=== PATIENT | male | born 1955 | race Caucasian/White ===

== ENCOUNTER 2020-07-26 15:10 | Outpatient (RCR) | payer OTHER, SELFPAY ==
[2016-03-05 10:10] VITALS: BMI 20.8
[2020-07-26] MEDS: COVID-19 VACC, MRNA(PFIZER)/PF 30 MCG/0.3 ML SYRINGE IM (13:24)
[2020-08-16] MEDS: COVID-19 VACC, MRNA(PFIZER)/PF 30 MCG/0.3 ML SYRINGE IM (13:04)
== END 2020-10-22 23:59 ==
LOC: IMMUN 15:10
PROVIDERS: PCP Family Medicine Geriatric Medicine; Referring Provider Family Medicine; Visit Provider Family Medicine
DX: Z23 Encounter for immunization (principal)
CPT/HCPCS: 0001A; 0002A; 91300

== ENCOUNTER → 2022-03-13 | Outpatient (CLI) | payer OTHER, SELFPAY ==
--- NOTE | 2022-03-13 16:15 | RAD_ITS ---
STUDY: X-RAY - CERVICAL SPINE REASON FOR EXAM: Male, 66 years old. NECK PAIN TECHNIQUE: 5 view(s) of the cervical spine were obtained. COMPARISON: None FINDINGS: Normal anterior atlantoaxial articulation. Normal odontoid process. Reversal of cervical lordosis due to degenerative disc disease. Severe anterior osteophyte formation C5-C7 moderate osteophyte formation C4-5 and C7-T1. Severe loss of disc space height C5-C7. There is moderate bilateral neural foraminal encroachment C5-C7. The soft tissue structures are unremarkable. RAD/Cerv Spine 4 or 5 Views IMPRESSION: Degenerative changes as above. Electronically Signed: Phong Simms MD, KLARISSA at 16:27 EDT ,
[2022-03-13 16:17] LABS: Bacteria 0 SEEN /hpf (None Seen); Mucous, Urine 0 SEEN /hpf (<or=2+); Squamous Epithelial Cells - UA 0 SEEN /hpf (0-5); White Blood Cells 0 SEEN /hpf (0-5)
[2022-03-13 17:31] LABS: Absolute Lymphocyte Count 1.88 X10^3/uL (0.83-4.51); Absolute Neutrophil Count 4.2 X10^3/uL (2.0-7.7); Basophil# 0.06 X10^3/uL; Basophil% 0.9 % (0-1); Eosinophil# 0.09 X10^3/uL; Eosinophils% 1.3 % (0-5); Hematocrit 51.9 % (40-54); Hemoglobin 17.3 g/dL (13.0-16.5); Lymphocyte # 1.88 X10^3/ul (0.83-4.51); Lymphocyte % 26.8 % (19-41); Mean Corp Hgb Conc 33.3 g/dL (32-36); Mean Corpuscular Hgb 32.4 pg (27.0-32.0); Mean Corpuscular Volume 97.2 fL (80-94); Mean Platelet Vol. 10.5 fl (6.2-12.0); Monocyte# 0.72 X10^3/uL; Monocyte% 10.3 % (0-10); NRBC Flagged by Analyzer 0 % (0-5); Neutrophil # 4.23 X10^3/uL (2.7-7.7); Neutrophil % 60.3 % (47-70); POSITIVE COUNT YES; Platelet Count 113 K/mm3 (150-450); RBC Distribution Width CV 13.3 % (11.6-14.6); RBC Distribution Width SD 48.2 fl (35.1-43.9); Red Blood Count 5.34 M/mm3 (4.6-6.2)
[2022-03-13 17:34] LABS: Differential Indicated SCAN CRITERIA MET
[2022-03-13 18:10] LABS: AST(SGOT) 39 U/L (15-37); Alanine Aminotransfer ALT/SGPT 45 U/L (16-61); Alkaline Phosphatase 87 U/L (45-117); Anion Gap 7 (5-15); BUN 13 mg/dL (7-18); BUN/Creat Ratio 17.5 RATIO (10-20); Calcium,Total 9.1 mg/dL (8.5-10.1); Chloride 98 mmol/L (98-107); Cholesterol 140 mg/dL (200); Creatinine, Serum 0.74 mg/dL (0.70-1.30); EST Glomerular Filtration Rate 112 mL/min (>60); Est Glom Filt Rate - Afr Amer 136 mL/min (>60); Glucose 73 mg/dL (74-106); High Density Lipoprotein 84 mg/dL; Magnesium 1.5 mg/dL (1.6-2.6); Potassium 3.4 mmol/L (3.5-5.1); Sodium Level 132 mmol/L (136-145); Thyroid Stim Hormone (TSH) 1.67 uIU/mL (0.358-3.74); Triglycerides 40 mg/dL; Very Low Density Lipoprotein 8 mg/dL (5-40)
[2022-03-13 18:11] LABS: Platelet Estimate SLT DEC (ADEQ); Red Cell Morphology N CYTIC NORMAL (NORM C&C)
[2022-03-13 18:18] LABS: Color, Urine Yellow (Yellow); Glucose, Dipstick Normal (Normal); Ketone-Dipstick 15 mg/dl (Negative); Leukocyte Esterase-Dipstick Negative /ul (Negative); Nitrite-Dipstick Negative (Negative); Occult Blood-Urine 25 /ul (Negative); Protein-Dipstick Negative (Negative); Specific Gravity, Urine 1.015 (1.002-1.030); Urine Bilirubin Dipstick Negative (Negative); Urine Clarity Clear (Clear); Urine Urobilinogen Normal (Normal); Urine pH 6.5 (5.0 - 8.0)
[2022-03-13 19:37] LABS: Red Blood Cells-Urine 0-5 SEEN /hpf (0-5)
[2022-03-16 12:34] LABS: Hepatitis B Surface Antibody Non-Reactive; Hepatitis B Surface Antigen Non-Reactive (Nonreactive); Hepatitis C Antibody Non-Reactive (Nonreactive)
[2022-03-16 23:21] LABS: Ferritin 61 ng/mL (26-388); Iron 84 ug/dL (65-175); Iron Binding Capacity,Total 460 ug/dL (250-450)
== END | disposition home or self-care (01) ==
LOC: MTLAB 16:13
PROVIDERS: PCP Family Medicine; Referring Provider Family Medicine; Visit Provider Family Medicine
DX: M54.2 Cervicalgia (principal); F17.210 Nicotine dependence, cigarettes, uncomplicated; R03.0 Elevated blood-pressure reading, without diagnosis of hypertension; D75.1 Secondary polycythemia; Z86.73 Personal history of transient ischemic attack (TIA), and cerebral infarction without residual deficits
CPT/HCPCS: 36415; 72050; 80053; 80061; 81001; 82728; 83540; 83550; 83735; 84443; 84466; 85025; 86706; 86803; 87340

== ENCOUNTER → 2022-03-17 | Outpatient (CLI) | payer OTHER, SELFPAY ==
[2022-03-17 18:03] LABS: Ferritin 77 ng/mL (26-388); Iron 71 ug/dL (65-175); Iron Binding Capacity,Total 340 ug/dL (250-450); PERCENT IRON SATURATION 20.9 % (15.0-55.0)
[2022-03-19 15:12] LABS: Transferrin 268 mg/dL (177-329)
== END | disposition home or self-care (01) ==
LOC: MTLAB 15:06
PROVIDERS: PCP Family Medicine; Referring Provider Family Medicine; Visit Provider Family Medicine
DX: R79.89 Other specified abnormal findings of blood chemistry (principal); D75.1 Secondary polycythemia
CPT/HCPCS: 36415; 82728; 83540; 83550; 84466

== ENCOUNTER → 2022-03-24 | Outpatient (CLI) | payer OTHER, SELFPAY ==
--- NOTE | 2022-03-24 06:48 | CT_ITS ---
STUDY: LOW DOSE CT LUNG CANCER SCREENING REASON FOR EXAM: Male, 67 years old. Current smoker. Patient smokes 1 pack per day for 50 years. RADIATION DOSAGE (If Supplied By Facility): CTDIvol = ( 3.02 ) mGy, DLP = ( 111.36 ) mGycm TECHNIQUE: No contrast was administered. Low dose technique was utilized (average mAS-38 and kVp 120). 1.25 mm axial source images with a slice interval of 1.25-mm were reconstructed in lung windows. 2.5 mm axial source images with a slice interval of 2.5-mm were reconstructed in lung windows. 5.0 mm axial source images with a slice interval of 5.0-mm were reconstructed in soft tissue windows. COMPARISON: Comparison is made with prior study dated 02/22/2014. NODULES: No suspicious nodules are seen. Emphysema: Scarring at both lung apices more prominent at the right lung apex. Hyperinflation. Mild degree of emphysematous changes more prominent in the upper lobes. Minimal increased markings in the posterior medial segment of the right lower lobe suggestive of linear scarring. Endobronchial lesion: None Aorta: Atherosclerotic plaque formation of the aortic arch. CORONARY ARTERIES: Coronary artery calcification is seen. Heart: Unremarkable Pulmonary artery: Unremarkable Mediastinal nodes: Small benign-appearing mediastinal lymph nodes. Other chest and abdominal findings: CT/Low Dose CT Lung Screening IMPRESSION: Lung-RADS category 2 - Continue annual screening with LDCT in 12 months. IMPORTANT NOTES FOR USE: ACR Lung-RADS Version 1.1 Assessment Categories Release Date: 2018 Category: Coded 0-4 bases on nodule(s) with highest degree of suspicion. Negative screen is defined as categories 1 and 2; a positive screen is defined as categories 3 and 4. Category 3 and 4A nodules that are unchanged on interval CT should be coded as category 2, and individuals returned to screening in 12 months. Category 4X: Category 3 or 4 nodules with additional imaging findings that increase the suspicion of lung cancer, such as spiculation, GGN that doubles in size in 1 year, enlarged lymph notes, etc. Category Modifiers: S (significant finding unrelated to lung cancer) Electronically Signed: Hamzah Claudio MD at 9:02 EST ,
== END | disposition home or self-care (01) ==
LOC: CT 06:47
PROVIDERS: PCP Family Medicine; Visit Provider Family Medicine
DX: F17.210 Nicotine dependence, cigarettes, uncomplicated (principal)
CPT/HCPCS: 71271

== ENCOUNTER → 2022-06-26 | Outpatient (CLI) | payer BC, SELFPAY ==
[2022-06-26 14:19] LABS: Bacteria 0 SEEN /hpf (None Seen); Mucous, Urine 0 SEEN /hpf (<or=2+); Red Blood Cells-Urine 0 SEEN /hpf (0-5); Squamous Epithelial Cells - UA 0 SEEN /hpf (0-5); White Blood Cells 0 SEEN /hpf (0-5)
[2022-06-26 17:47] LABS: Absolute Lymphocyte Count 1.65 X10^3/uL (0.83-4.51); Absolute Neutrophil Count 4.2 X10^3/uL (2.0-7.7); Basophil# 0.05 X10^3/uL; Basophil% 0.7 % (0-1); Eosinophils% 1.5 % (0-5); Hematocrit 46.3 % (40-54); Hemoglobin 15.5 g/dL (13.0-16.5); Lymphocyte # 1.65 X10^3/ul (0.83-4.51); Lymphocyte % 24.6 % (19-41); Mean Corp Hgb Conc 33.5 g/dL (32-36); Mean Corpuscular Hgb 31.8 pg (27.0-32.0); Mean Corpuscular Volume 95.1 fL (80-94); Mean Platelet Vol. 9.9 fl (6.2-12.0); Monocyte# 0.69 X10^3/uL; Monocyte% 10.3 % (0-10); NRBC Flagged by Analyzer 0 % (0-5); Neutrophil # 4.21 X10^3/uL (2.7-7.7); Neutrophil % 62.6 % (47-70); Platelet Count 145 K/mm3 (150-450); RBC Distribution Width CV 13.2 % (11.6-14.6); RBC Distribution Width SD 46.4 fl (35.1-43.9); Red Blood Count 4.87 M/mm3 (4.6-6.2); White Blood Count 6.7 K/mm3 (4.4-11.0)
[2022-06-26 17:55] LABS: Color, Urine Yellow (Yellow); Glucose, Dipstick Normal (Normal); Ketone-Dipstick Negative (Negative); Leukocyte Esterase-Dipstick Negative /ul (Negative); Nitrite-Dipstick Negative (Negative); Occult Blood-Urine 25 /ul (Negative); Protein-Dipstick Negative (Negative); Specific Gravity, Urine 1.015 (1.002-1.030); Urine Bilirubin Dipstick Negative (Negative); Urine Clarity Clear (Clear); Urine Urobilinogen 1 mg/dl (Normal); Urine pH 6.5 (5.0 - 8.0)
[2022-06-26 18:11] LABS: AST(SGOT) 31 U/L (15-37); Alanine Aminotransfer ALT/SGPT 37 U/L (16-61); Albumin, Serum 3.7 g/dL (3.2-5.0); Alkaline Phosphatase 85 U/L (45-117); Anion Gap 8 (5-15); BUN 13 mg/dL (7-18); BUN/Creat Ratio 18.1 RATIO (10-20); Chloride 102 mmol/L (98-107); Creatinine, Serum 0.72 mg/dL (0.70-1.30); EST Glomerular Filtration Rate 117 mL/min (>60); Est Glom Filt Rate - Afr Amer 141 mL/min (>60); Globulin 3.7 g/dL (2.2-4.2); Glucose 96 mg/dL (74-106); Magnesium 1.7 mg/dL (1.6-2.6); Potassium 3.5 mmol/L (3.5-5.1); Protein, Total 7.4 g/dL (6.4-8.2); Sodium Level 134 mmol/L (136-145)
== END | disposition home or self-care (01) ==
LOC: MFPLAB 14:16
PROVIDERS: PCP Family Medicine; Referring Provider Family Medicine; Visit Provider Family Medicine
DX: R79.89 Other specified abnormal findings of blood chemistry (principal); F17.210 Nicotine dependence, cigarettes, uncomplicated; E83.42 Hypomagnesemia
CPT/HCPCS: 36415; 80053; 81001; 83735; 85025

== ENCOUNTER → 2022-11-25 | Outpatient (CLI) | payer BC, SELFPAY ==
[2022-11-25 15:39] LABS: Bacteria 0 SEEN /hpf (None Seen); Mucous, Urine 0 SEEN /hpf (<or=2+); White Blood Cells 0 SEEN /hpf (0-5)
[2022-11-25 17:53] LABS: Color, Urine Yellow (Yellow); Glucose, Dipstick Normal (Normal); Ketone-Dipstick 15 mg/dl (Negative); Leukocyte Esterase-Dipstick 25 /ul (Negative); Nitrite-Dipstick Negative (Negative); Occult Blood-Urine 50 /ul (Negative); Protein-Dipstick 30 mg/dl (Negative); Specific Gravity, Urine 1.015 (1.002-1.030); Urine Bilirubin Dipstick Negative (Negative); Urine Clarity Clear (Clear); Urine Urobilinogen 4 mg/dl (Normal); Urine pH 6.5 (5.0 - 8.0)
[2022-11-25 17:56] LABS: Absolute Lymphocyte Count 1.85 X10^3/uL (0.83-4.51); Absolute Neutrophil Count 3.9 X10^3/uL (2.0-7.7); Basophil# 0.04 X10^3/uL; Basophil% 0.6 % (0-1); Eosinophil# 0.05 X10^3/uL; Eosinophils% 0.8 % (0-5); Hematocrit 47.3 % (40-54); Hemoglobin 16.3 g/dL (13.0-16.5); Lymphocyte # 1.85 X10^3/ul (0.83-4.51); Lymphocyte % 27.9 % (19-41); Mean Corp Hgb Conc 34.5 g/dL (32-36); Mean Corpuscular Hgb 32.5 pg (27.0-32.0); Mean Corpuscular Volume 94.2 fL (80-94); Monocyte# 0.81 X10^3/uL; Monocyte% 12.2 % (0-10); NRBC Flagged by Analyzer 0 % (0-5); Neutrophil # 3.86 X10^3/uL (2.7-7.7); Neutrophil % 58.2 % (47-70); Platelet Count 112 K/mm3 (150-450); RBC Distribution Width CV 13.5 % (11.6-14.6); RBC Distribution Width SD 46.9 fl (35.1-43.9); Red Blood Count 5.02 M/mm3 (4.6-6.2); White Blood Count 6.6 K/mm3 (4.4-11.0)
[2022-11-25 18:04] LABS: Red Blood Cells-Urine 0-5 SEEN /hpf (0-5); Squamous Epithelial Cells - UA 0-5 SEEN /hpf (0-5)
[2022-11-25 18:10] LABS: AST(SGOT) 95 U/L (15-37); Alanine Aminotransfer ALT/SGPT 99 U/L (16-61); Albumin, Serum 4.1 g/dL (3.2-5.0); Alkaline Phosphatase 75 U/L (45-117); Anion Gap 10 (5-15); BUN 8 mg/dL (7-18); BUN/Creat Ratio 11.3 RATIO (10-20); Calcium,Total 9.2 mg/dL (8.5-10.1); Chloride 97 mmol/L (98-107); Cholesterol 153 mg/dL (200); Creatinine, Serum 0.71 mg/dL (0.70-1.30); EST Glomerular Filtration Rate 118 mL/min (>60); Est Glom Filt Rate - Afr Amer 143 mL/min (>60); Globulin 4.1 g/dL (2.2-4.2); Glucose 80 mg/dL (74-106); High Density Lipoprotein 109 mg/dL; Potassium 3.5 mmol/L (3.5-5.1); Protein, Total 8.2 g/dL (6.4-8.2); Sodium Level 129 mmol/L (136-145); Triglycerides 44 mg/dL; Very Low Density Lipoprotein 9 mg/dL (5-40)
[2022-11-26 16:44] LABS: Hepatitis C Antibody Non-Reactive (Nonreactive)
[2022-11-30 13:07] LABS: Hepatitis Be Ab Negative (Negative); Hepatitis Be Ag Negative (Negative)
== END | disposition home or self-care (01) ==
LOC: MFPLAB 15:37
PROVIDERS: PCP Family Medicine; Visit Provider Family Medicine
DX: R79.89 Other specified abnormal findings of blood chemistry (principal); J44.9 Chronic obstructive pulmonary disease, unspecified; Z86.73 Personal history of transient ischemic attack (TIA), and cerebral infarction without residual deficits
CPT/HCPCS: 36415; 80053; 80061; 81001; 85025; 86707; 86803; 87350

== ENCOUNTER → 2022-12-11 | Outpatient (CLI) | payer BC, SELFPAY ==
[2022-12-11 17:44] LABS: ALB/GLOB Ratio 1.1 RATIO (0.9-2.4); AST(SGOT) 95 U/L (15-37); Alanine Aminotransfer ALT/SGPT 94 U/L (16-61); Albumin, Serum 4.4 g/dL (3.2-5.0); Alkaline Phosphatase 83 U/L (45-117); Anion Gap 8 (5-15); BUN 7 mg/dL (7-18); BUN/Creat Ratio 9.6 RATIO (10-20); Calcium,Total 9.6 mg/dL (8.5-10.1); Chloride 98 mmol/L (98-107); Creatinine, Serum 0.73 mg/dL (0.70-1.30); EST Glomerular Filtration Rate 115 mL/min (>60); Est Glom Filt Rate - Afr Amer 139 mL/min (>60); Glucose 87 mg/dL (74-106); Protein, Total 8.4 g/dL (6.4-8.2); Sodium Level 131 mmol/L (136-145)
[2022-12-11 18:27] LABS: Hepatitis C Antibody Non-Reactive (Nonreactive)
[2022-12-14 16:09] LABS: Hepatitis Be Ab Negative (Negative); Hepatitis Be Ag Negative (Negative)
== END | disposition home or self-care (01) ==
LOC: MFPLAB 15:29
PROVIDERS: PCP Family Medicine; Visit Provider Family Medicine
DX: R79.89 Other specified abnormal findings of blood chemistry (principal)
CPT/HCPCS: 36415; 80053; 86707; 86803; 87350

== ENCOUNTER 2025-03-16 15:50 | Emergency (ER) | payer MEDICARE, SELFPAY ==
[2025-03-16] VITALS (35 sets, daily range): BP systolic 79–147; BP diastolic 55–133; PULSE 83–120; RESP 12–23; TEMP 36.3–37; O2SAT 93–100; BMI 17.6
--- NOTE | 2025-03-16 16:14 | EKG12_ITS ---
Test Reason : SOB
[2025-03-16] MEDS: 0.9% Normal Saline (500mL Bag) 500 ML 999 ML IV (16:21)
--- NOTE | 2025-03-16 16:22 | ED.VIS.DYS ---
HPI History of Present Illness Chief Complaint: Shortness of Breath Narrative Narrative: Chief complaint and HPI: 70-year-old gentleman with past medical history of COPD, COPD status post PCI, tobacco abuse presents from Dr. Jay's office for shortness of breath. Patient states he has not followed with a primary care physician in 3 years. States he is not on any medication. Was supposed to be on Trelegy for his COPD. Patient states he has had progressive shortness of breath for 3 years. He has had increased fullness in which he has lost 40 pounds in 3 years. He endorses generalized weakness in which it is difficult for him to perform daily tasks of living including bathing. Patient decided that he needs to see a physician in which he went to Dr. Jay's office today. He was sent to our emergency department due to inability to obtain a pulse ox and concern for failure to thrive. Patient denies any fever, chest pain, abdominal pain, nausea, vomiting, dysuria, URI type symptoms. He states that his shortness of breath is worse with exertion. Review of systems: See HPI Medications: As listed on the chart Allergies: As listed on the chart PFSH: Per chart Vital signs: As listed on the chart. Reviewed. Physical exam: Gen: A&O x3, unkept, disheveled Head: Normocephalic, atraumatic Eyes: No sclera icterus, conjunctiva clear ENT: Dry mucous membranes Neck: Trachea midline, No JVD CV: RRR, no murmurs, no peripheral edema Resp: Lungs with expiratory wheezing diffusely GI: Cachectic, abd soft, non-distended, non-tender, no r/r/g : Normal external genitalia without rash Musc: Moves all extremities, generalized weakness, no deformity Skin: Warm, dry Neuro: Alert, oriented, grossly intact, sensation intact Psych: Cooperative, appropriate mood and affect [facility] Medical History (Updated 03/16/25 @ 21:[address] Maddi Hoffmann MD) Alcohol abuse Severe protein-calorie malnutrition Tobacco use COPD (chronic obstructive pulmonary disease) HLD (hyperlipidemia) HTN (hypertension) CAD (coronary artery disease) Anemia Home Medications ?Medication ?Instructions ?Recorded ?Last Taken ?Type No Known/Unobtainable [No Known 03/05/16 Unknown History Home Medications] Allergy/AdvReac Type Severity Reaction Status Date / Time No Known Allergies Allergy Verified 03/16/25 15:53 Family History (Updated 03/16/25 @ 21:[address] Maddi Hoffmann MD) Mother CVA (cerebral vascular accident) Hypertension Father Rheumatoid arthritis Surgical History (Updated 03/16/25 @ 21:[address] Maddi Hoffmann MD) No history of previous surgery Social History (Updated 03/16/25 @ 21:[address] Maddi Hoffmann MD) household members: significant other Smoking Status: Current every day smoker tobacco type: cigarettes Smoking packs per day: 0.75 Smoking cigarettes per day: 15.0 alcohol intake: current alcohol intake frequency: 3 or more drinks per day Alcohol type: beer details: 5-6 beers daily, less than prior. substance use type: does not use EXAM Physical Exam Const Vital Signs: 03/16/25 15:51 03/16/25 15:53 03/16/25 16:18 Temperature 97.3 F L 98 F Temperature Source Oral Oral Pulse Rate 99 100 Respiratory Rate 16 18 Respiratory Effort Blood Pressure 147/133 H 79/63 L 117/78 Blood Pressure Mean 137 68 91 Pulse Ox 99 98 96 Oxygen Delivery Method Room Air Room Air 03/16/25 16:23 03/16/25 16:36 03/16/25 16:53 Temperature 98 F Temperature Source Oral Pulse Rate 115 H 100 Respiratory Rate 16 18 Respiratory Effort Short of Breath Blood Pressure 117/78 Blood Pressure Mean 91 Pulse Ox 100 Oxygen Delivery Method Room Air 03/16/25 17:00 03/16/25 17:00 03/16/25 17:23 Temperature 98 F 98 F Temperature Source Oral Oral Pulse Rate 100 100 Respiratory Rate 20 H 18 Respiratory Effort Blood Pressure 117/78 117/78 Blood Pressure Mean 91 91 Pulse Ox 98 100 99 Oxygen Delivery Method Room Air Room Air Room Air 03/16/25 18:14 03/16/25 18:52 03/16/25 18:53 Temperature 98.6 F 98 F Temperature Source Oral Oral Pulse Rate 115 H 120 H 120 H Respiratory Rate 18 20 H 20 H Respiratory Effort Blood Pressure 96/55 L 89/76 L 89/76 L Blood Pressure Mean 68 80 80 Pulse Ox 96 98 98 Oxygen Delivery Method Room Air Room Air Room Air 03/16/25 19:00 03/16/25 19:24 03/16/25 19:25 Temperature Temperature Source Pulse Rate 103 H Respiratory Rate 18 Respiratory Effort Blood Pressure 86/61 L 92/69 Blood Pressure Mean 69 76 Pulse Ox Oxygen Delivery Method 03/16/25 19:45 03/16/25 19:59 03/16/25 20:00 Temperature Temperature Source Pulse Rate 91 100 Respiratory Rate 18 15 Respiratory Effort Blood Pressure 103/70 103/65 103/68 Blood Pressure Mean 79 77 80 Pulse Ox 100 Oxygen Delivery Method 03/16/25 20:15 03/16/25 20:30 03/16/25 20:30 Temperature Temperature Source Pulse Rate 96 89 Respiratory Rate 16 15 Respiratory Effort Blood Pressure 101/68 103/71 103/71 Blood Pressure Mean 80 82 82 Pulse Ox Oxygen Delivery Method 03/16/25 20:30 03/16/25 20:45 03/16/25 21:00 Temperature Temperature Source Pulse Rate 91 83 Respiratory Rate 14 18 Respiratory Effort Blood Pressure 103/71 Blood Pressure Mean 82 Pulse Ox 100 Oxygen Delivery Method 03/16/25 21:10 03/16/25 21:15 03/16/25 21:30 Temperature 98.0 F Temperature Source Pulse Rate 95 106 H 90 Respiratory Rate 18 18 16 Respiratory Effort Blood Pressure 103/68 Blood Pressure Mean 79 Pulse Ox 97 93 96 Oxygen Delivery Method 03/16/25 21:45 03/16/25 22:00 Temperature Temperature Source Pulse Rate 85 90 Respiratory Rate 16 20 H Respiratory Effort Blood Pressure 121/76 H Blood Pressure Mean 91 Pulse Ox Oxygen Delivery Method MDM MDM MDM Narrative Medical decision making narrative: 70-year-old gentleman with past medical history of COPD, COPD status post PCI, tobacco abuse presents from Dr. Jay's office for shortness of breath. Patient states he has not followed with a primary care physician in 3 years. States he is not on any medication. Was supposed to be on Trelegy for his COPD. Patient states he has had progressive shortness of breath for 3 years. He has had increased fullness in which he has lost 40 pounds in 3 years. He endorses generalized weakness in which it is difficult for him to perform daily tasks of living including bathing. Patient decided that he needs to see a physician in which he went to Dr. Jay's office today. He was sent to our emergency department due to inability to obtain a pulse ox and concern for failure to thrive. On presentation, we had difficulty obtaining vitals given cold fingers and appropriate blood pressure cuff size due to cachexia. However once able to obtain patient's vital signs are stable without hypoxia. Differential diagnosis includes but is not limited to COPD, failure to thrive, dehydration, electrolyte abnormality, ACS, viral illness, PE, cancer. 500 cc NS bolus ordered with Lili. Laboratory workup ordered including CTA chest. CBC without leukocytosis. Patient has anemia with hemoglobin of 12.4. Platelets unremarkable. BMP with mild hypokalemia at 3.0 without ANNALISA. P.o. potassium ordered. Magnesium mildly low at 1.4. P.o. magnesium ordered. COVID, flu, RSV negative. Troponin 26 and 27. Patient not having chest pain. BNP elevated at 1389. Patient not overtly fluid overloaded. Patient's blood pressure started to decrease here in the emergency department. I do think the decrease in blood pressure is secondary to dehydration. 1 L NS bolus ordered. Blood pressure improved with fluids. CT chest shows multiple scattered pulmonary nodules possible malignant/metastatic. Largest nodule measuring up to 19 mm in the right upper lobe. Several enlarged mediastinal and bilateral hilar nodes, probably metastatic. Partially imaged ill-defined heterogeneous possibly infiltrative mass in the left lower neck laryngeal region, which may be a primary carcinoma. Recommend dedicated neck CT. Potential sampling and/or PET CT suggested. No pneumonia or pulmonary edema. No pneumothorax or PE. Will order CT neck to better assess possible infiltrative mass. Patient was updated of all the results and the plan. I do recommend admission for continued hydration as well as skilled rehab placement given patient is failure to thrive at home and having difficulty performing daily tasks of living. He is in agreement to this. I spoke with the hospitalist, Dr. Hoffmann. She did, evaluate the patient. Will hold off on official admission until CT neck results. 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 There is a large tumor volume and there is narrowing of the airway at the level of the glottis and supraglottis. I spoke with the hospitalist service, patient will need be transferred. Patient updated of all results and confirmed understanding of the plan. Will reach out to [facility]. I spoke to [facility] Transfer line. Patient was accepted by Dr. Vogel. They are waiting bed placement at this time. Dr. Vogel did not speak with me personally. Patient will be monitored in our emergency department until transfer is able to be obtained. EKG: Interpreted by me/EM physician: Normal sinus rhythm with PACs. Nonspecific ST changes. Patient did have a tremor with multiple artifacts. Heart rate 91 Impression: 1. 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 Failure to thrive 3. Dehydration 4. Mild hypokalemia 5. Mild hypomagnesia Lab Data Labs: Laboratory Results - last 24 hr 03/16/25 03/16/25 16:33 18:31 WBC 8.0 RBC 4.06 L Hgb 12.4 L Hct 35.9 L MCV 88.4 MCH 30.5 MCHC 34.5 RDW Std Deviation 44.6 H RDW Coeff of Alfonso 13.8 Plt Count 153 MPV 10.5 Immature Gran % (Auto) 0.600 Neut % (Auto) 78.6 H Lymph % (Auto) 12.7 L Mason % (Auto) 7.3 Eos % (Auto) 0.5 Baso % (Auto) 0.3 Absolute Neuts (auto) 6.3 Absolute Lymphs (auto) 1.01 Nucleated RBC % 0 Sodium 133 Potassium 3.0 L Chloride 95 L Carbon Dioxide 23.4 Anion Gap 14 BUN 7 Creatinine 0.59 L Estim Creat Clear Calc 67.50 Est GFR (MDRD) Non-Af 106 BUN/Creatinine Ratio 11.8 Glucose 121 H Calcium 8.6 Magnesium 1.4 L Troponin T High Sens 26 H Troponin T Hi Sens 2 Hr 27 H NT pro BNP II 1389 H Radiography Diagnostic Testing: Clinical Impression(s) from Imaging Studies Chest CTA 03/16/25 17:00 IMPRESSION: 1. Multiple scattered pulmonary nodules as described above, possibly malignant/metastatic. The largest nodule measures up to 19 mm in the right upper lobe. 2. Several enlarged mediastinal and bilateral hilar nodes, probably metastatic. 3. Partially imaged ill-defined heterogeneous possibly infiltrative mass in the left lower neck laryngeal region, which may be a primary carcinoma. Dedicated neck CT or MRI with contrast may be obtained for better characterization. Tissue sampling and/or PET-CT suggested. 4. Additional ancillary findings/details, as described above. 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 There is a large tumor volume and there is narrowing of the airway at the level of the glottis and supraglottis. Reading Location: [facility] Discharge Plan Triage Chief Complaint: Shortness of Breath ED Provider: Austin Daniel Dx/Rx/DC Orders Prescriptions: No Action No Known Home Medications Primary Care Provider: Geremias Jay Referrals: Geremias Jay MD [Primary Care Provider, Family Practice] Print Language: Lao
[2025-03-16 16:42] LABS: Hematocrit 35.9 % (40-54); Hemoglobin 12.4 g/dL (13.0-16.5); Immature Granulocytes Count 0.050 X10^3/uL (0.0-0.0); Mean Corp Hgb Conc 34.5 g/dL (32-36); Mean Corpuscular Volume 88.4 fL (80-94); Mean Platelet Vol. 10.5 fl (6.2-12.0); NRBC Flagged by Analyzer 0 % (0-5); Platelet Count 153 K/mm3 (150-450); RBC Distribution Width CV 13.8 % (11.6-14.6); RBC Distribution Width SD 44.6 fl (35.1-43.9); Red Blood Count 4.06 M/mm3 (4.6-6.2); White Blood Count 8.0 K/mm3 (4.4-11.0)
--- NOTE | 2025-03-16 17:00 | CT_ITS ---
PROCEDURE: CT/CTA Chest W/WO Contrast
[2025-03-16 17:09] LABS: Anion Gap 14 (5-15); BUN 7 mg/dL (4-19); BUN/Creat Ratio 11.8 RATIO (10-20); Calcium,Total 8.6 mg/dL (7.6-11.0); Carbon Dioxide 23.4 mmol/L (21.0-32.0); Chloride 95 mmol/L (98-108); Estimated Creatinine Clearance 67.50 ml/min (50-250); Glucose 121 mg/dL (70-99); Magnesium 1.4 mg/dL (1.5-2.2); Potassium 3.0 mmol/L (3.3-5.1); Pro- Brain NATRIURETIC PEPTIDE 1389 pg/mL (<=900); Troponin T High Sensitivity 26 ng/L (<=22)
[2025-03-16] MEDS: Potassium Chloride Oral Soln 20 MEQ/15 ML UDC 40 MEQ PO (17:36)
--- NOTE | 2025-03-16 18:58 | ED.RN ---
dr. norman notified pt. was flagging sepsis per vitals, she states pt is not and to cancel it.
--- NOTE | 2025-03-16 19:00 | ED.RN ---
dr. norman wants manual bp bp reading 86/62.
[2025-03-16] MEDS: 0.9% Normal Saline (1000mL) 1,000 ML 1000 ML IV (19:04)
[2025-03-16 19:06] LABS: Troponin T High Sens 2 HR 27 ng/L (<=22)
--- NOTE | 2025-03-16 20:34 | CT_ITS ---
PROCEDURE: CT/Soft Tissue Neck WITH Contrast
--- NOTE | 2025-03-16 21:11 | PCM.HP.STD ---
HPI - General General Date of Admission: 03/16/25 Date of Service: 03/16/25 Chief Complaint: Weight loss, adult FTT. HPI Narrative The patient is a 70 y/o M w/ PMHx: EtOH abuse (currently down to 5-6 beers/day), COPD, CAD s/p PCI, HTN, HLD, Tobacco use who presents to the [facility] ED on 03/16/2025 from his PCP office unfortunately not having follow-up with a primary care for at least the last 3 years not taking any medication that he is supposed to with progressive worsening dyspnea over the last several years as well as a weight loss of 40 pounds over the last 3 years with increased weakness and debility however upon PCP evaluation on day of presentation there were concern for hypoxia given his significant difficulty in obtaining a pulse ox and concern for failure to thrive prompting referral to the ED to be cautious. Patient does report that his dyspnea is worse with exertion but he denies any recent fever, chills. He does report mildly sore throat and hoarse voice over the last several weeks. He denies any recent abdominal pain, nausea, emesis. Workup in the ED included T97.3, heart rate 99, BP 147/133, respiratory rate 16, 99% on room air with most recent repeat vitals T98, heart rate 120, BP 86/61, respiratory rate 20, 98% on room air, CBC with WC 8.0, hemoglobin 12.4, MCV 88.4, platelet 153 without marked shift, BMP with potassium 3.0, chloride 95, BUN/creatinine 7/0.59, GFR 106, glucose 124, magnesium 1.4, troponin initial 26 with repeat delta 27, NT proBNPII very mildly elevated 1389, chest CTA with multiple scattered pulmonary nodules possibly malignant/metastatic with the largest nodule measuring up to 19 mm in the right upper lobe, several enlarged mediastinal and bilateral hilar nodes probably a metastatic, partially imaged ill-defined heterogeneous possible infiltrative mass in the left lower neck/laryngeal region possibly a primary carcinoma, EKG with sinus rhythm with PACs with nonspecific ST changes with no acute evidence of ischemia. In the ED patient ministered 2 L normal saline, Tylenol 1000 g p.o. x 1, DuoNeb therapy, magnesium oxide oral 400 mg p.o. x 1, potassium chloride 40 mill equivalents p.o. x 1. Discussed with ED physician given findings and she notes intention to obtain CT of the neck to further evaluate mass. [facility] Medical History (Updated 03/16/25 @ 21:[address] Maddi Hoffmann MD) Alcohol abuse Severe protein-calorie malnutrition Tobacco use COPD (chronic obstructive pulmonary disease) HLD (hyperlipidemia) HTN (hypertension) CAD (coronary artery disease) Anemia Home Medications ?Medication ?Instructions ?Recorded ?Last Taken ?Type No Known/Unobtainable [No Known 03/05/16 Unknown History Home Medications] Allergy/AdvReac Type Severity Reaction Status Date / Time No Known Allergies Allergy Verified 03/16/25 15:53 Family History (Updated 03/16/25 @ 21:[address] Maddi Hoffmann MD) Mother CVA (cerebral vascular accident) Hypertension Father Rheumatoid arthritis Surgical History (Updated 03/16/25 @ 21:[address] Maddi Hoffmann MD) No history of previous surgery Social History (Updated 03/16/25 @ 21:[address] Maddi Hoffmann MD) household members: significant other Smoking Status: Current every day smoker tobacco type: cigarettes Smoking packs per day: 0.75 Smoking cigarettes per day: 15.0 alcohol intake: current alcohol intake frequency: 3 or more drinks per day Alcohol type: beer details: 5-6 beers daily, less than prior. substance use type: does not use ROS ROS Narrative Admission Review of Systems: CONSTITUTIONAL: No fever, chills. + Weakness, fatigue, weight loss 40 pounds over 3 years. HEENT: + Sore throat, mildly hoarse. Eyes: No visual loss, blurred vision, double vision or yellow sclerae. Ears, Nose, Throat: No hearing loss, sneezing, congestion, runny nose or sore throat. SKIN: No rash or itching, lesions, wounds. CARDIOVASCULAR: No chest pain, chest pressure or chest discomfort, palpitations, edema, orthopnea, syncopal events. RESPIRATORY: + Dyspnea, worse with exertion. No marked cough or sputum, wheezing, hemoptysis. GASTROINTESTINAL: + Poor appetite. No nausea, vomiting or diarrhea, abdominal pain, melena, BRBPR. GENITOURINARY: No dysuria, frequency, urgency or retention. NEUROLOGICAL: + General debility, weakness with failure to thrive. No headache, dizziness, syncope, paralysis, ataxia, numbness or tingling in the extremities, focal weakness, change in bowel or bladder control, seizure. MUSCULOSKELETAL: + muscle, back pain, joint pain or stiffness. HEMATOLOGIC: + Lab evidence of anemia, no easy bleeding/bruising history. LYMPHATICS: No enlarged nodes. No history of splenectomy. PSYCHIATRIC: No history of depression or anxiety. ENDOCRINOLOGIC: No reports of sweating, cold or heat intolerance. No polyuria or polydipsia. ALLERGIES: No history of asthma, hives, eczema or rhinitis. Vital Signs Vital Signs Vital Signs: 03/16/25 15:51 03/16/25 15:53 03/16/25 16:18 Temperature 97.3 F L 98 F Temperature Source Oral Oral Pulse Rate 99 100 Respiratory Rate 16 18 Respiratory Effort Blood Pressure 147/133 H 79/63 L 117/78 Blood Pressure Mean 137 68 91 Pulse Ox 99 98 96 Oxygen Delivery Method Room Air Room Air 03/16/25 16:23 03/16/25 16:36 03/16/25 16:53 Temperature 98 F Temperature Source Oral Pulse Rate 115 H 100 Respiratory Rate 16 18 Respiratory Effort Short of Breath Blood Pressure 117/78 Blood Pressure Mean 91 Pulse Ox 100 Oxygen Delivery Method Room Air 03/16/25 17:00 03/16/25 17:00 03/16/25 17:23 Temperature 98 F 98 F Temperature Source Oral Oral Pulse Rate 100 100 Respiratory Rate 20 H 18 Respiratory Effort Blood Pressure 117/78 117/78 Blood Pressure Mean 91 91 Pulse Ox 98 100 99 Oxygen Delivery Method Room Air Room Air Room Air 03/16/25 18:14 03/16/25 18:52 03/16/25 18:53 Temperature 98.6 F 98 F Temperature Source Oral Oral Pulse Rate 115 H 120 H 120 H Respiratory Rate 18 20 H 20 H Respiratory Effort Blood Pressure 96/55 L 89/76 L 89/76 L Blood Pressure Mean 68 80 80 Pulse Ox 96 98 98 Oxygen Delivery Method Room Air Room Air Room Air 03/16/25 19:00 03/16/25 19:24 03/16/25 19:25 Temperature Temperature Source Pulse Rate 103 H Respiratory Rate 18 Respiratory Effort Blood Pressure 86/61 L 92/69 Blood Pressure Mean 69 76 Pulse Ox Oxygen Delivery Method 03/16/25 19:45 03/16/25 19:59 03/16/25 20:00 Temperature Temperature Source Pulse Rate 91 100 Respiratory Rate 18 15 Respiratory Effort Blood Pressure 103/70 103/65 103/68 Blood Pressure Mean 79 77 80 Pulse Ox 100 Oxygen Delivery Method 03/16/25 20:15 03/16/25 20:30 03/16/25 20:30 Temperature Temperature Source Pulse Rate 96 89 Respiratory Rate 16 15 Respiratory Effort Blood Pressure 101/68 103/71 103/71 Blood Pressure Mean 80 82 82 Pulse Ox Oxygen Delivery Method 03/16/25 20:30 03/16/25 20:45 03/16/25 21:00 Temperature Temperature Source Pulse Rate 91 83 Respiratory Rate 14 18 Respiratory Effort Blood Pressure 103/71 Blood Pressure Mean 82 Pulse Ox 100 Oxygen Delivery Method Weight Weight: 119 lb 0.794 oz Body Mass Index (BMI) 17.6 Physical Exam Narrative Physical Examination: General: Awake, alert, oriented x 3 and cooperative, seated upright in the ED bed, fatigued, mildly disheveled, cachectic appearing. Skin: Normal color, normal turgor, no icterus, no cyanosis except occasional stage ecchymoses, abrasion. HEENT: AT/NC, EOMI, PERRLA, dry MM, no concerning findings of the visible oropharynx, no carotid bruits or JVD noted, notable enlargement of the left lateral neck. Lungs: Diminished, greater bases, no evidence of any distress, no rales, ronchi or wheezing. Heart: Regular rate and rhythm; no gallop, rub audible. Abdomen: Soft, cachectic, NTTP, ND, mildly hyperactive BS, no appreciated HSM. Extremities: No cyanosis, no clubbing, no significant distal edema, evidence of muscle loss. Neurological: Patient awake, alert, oriented as noted, cognitive function intact; pupils equally reactive to light and accommodation, cranial nerves grossly normal, moving all 4 extremities, no focal deficits, strength severely globally decreased Psychiatric: Affect appears flat, fatigued, no acute evidence of depressive or anxiety feelings. Results Lab / Micro Data 03/16/25 16:33 03/16/25 16:33 Labs: Laboratory Results - last 24 hr 03/16/25 16:33: WBC 8.0, RBC 4.06 L, Hgb 12.4 L, Hct 35.9 L, MCV 88.4, MCH 30.5, MCHC 34.5, RDW Std Deviation 44.6 H, RDW Coeff of Alfonso 13.8, Plt Count 153, MPV 10.5, Immature Gran % (Auto) 0.600, Neut % (Auto) 78.6 H, Lymph % (Auto) 12.7 L, Kent % (Auto) 7.3, Eos % (Auto) 0.5, Baso % (Auto) 0.3, Absolute Neuts (auto) 6.3, Absolute Lymphs (auto) 1.01, Nucleated RBC % 0, Sodium 133, Potassium 3.0 L, Chloride 95 L, Carbon Dioxide 23.4, Anion Gap 14, BUN 7, Creatinine 0.59 L, Estim Creat Clear Calc 67.50, Est GFR (MDRD) Non-Af 106, BUN/Creatinine Ratio 11.8, Glucose 121 H, Calcium 8.6, Magnesium 1.4 L, Troponin T High Sens 26 H, NT pro BNP II 1389 H 03/16/25 18:31: Troponin T Hi Sens 2 Hr 27 H Micro: Microbiology 03/16/25 16:20 Mucosa - Nasopharyngeal SARS-CoV-2, Influenza & RSV (PCR) - Final Imaging Radiology Impression Chest CTA 03/16/25 17:00 IMPRESSION: 1. Multiple scattered pulmonary nodules as described above, possibly malignant/metastatic. The largest nodule measures up to 19 mm in the right upper lobe. 2. Several enlarged mediastinal and bilateral hilar nodes, probably metastatic. 3. Partially imaged ill-defined heterogeneous possibly infiltrative mass in the left lower neck laryngeal region, which may be a primary carcinoma. Dedicated neck CT or MRI with contrast may be obtained for better characterization. Tissue sampling and/or PET-CT suggested. 4. Additional ancillary findings/details, as described above. 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 There is a large tumor volume and there is narrowing of the airway at the level of the glottis and supraglottis. Reading Location: [facility] Assessment & Plan Assessment/Plan (1) Adult failure to thrive: PLAN: Plan The patient is a 70 y/o M w/ PMHx: EtOH abuse (currently down to 5-6 beers/day), COPD, CAD s/p PCI, HTN, HLD, Tobacco use who presents to the [facility] ED on 03/16/2025 from his PCP office unfortunately not having follow-up with a primary care for at least the last 3 years not taking any medication that he is supposed to with progressive worsening dyspnea over the last several years as well as a weight loss of 40 pounds over the last 3 years with increased weakness and debility however upon PCP evaluation on day of presentation there were concern for hypoxia given his significant difficulty in obtaining a pulse ox and concern for failure to thrive prompting referral to the ED to be cautious. Patient does report that his dyspnea is worse with exertion but he denies any recent fever, chills or URI type symptoms. #1. 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 #2. Hypokalemia: Admission K+ 3.0, magnesium level obtained and is noted low 1.4, supplementation given, repeat level in AM. #3. Hypomagnesemia: Magnesium 1.4, supplementation initiated per ED however oral, will administer 2 g IV x 1, will repeat level in AM. #4. Normocytic anemia, unclear chronicity as lab comparisons remote: Admission hemoglobin 12.4, MCV 88.4, previous levels normal range however this was in 22 and 23 most recently, will repeat CBC in a.m. and if drops further we will investigate. #5. CAD: Status post previous PCI, will temporally hold aspirin therapy given #1 and possible need for biopsy, add statin, given low blood pressure on most recent assessment will defer any hypertensive regimen addition at this time. Reevaluate once improved. #6. Hypertension: Patient is not on a regimen with CAD history concurrently as noted, given low blood pressure upon most recent evaluation in the ED will hold off on regimen initiation, add once appropriate. #7. Hyperlipidemia: Not on regimen, given CAD will add back statin therapy. #8. Chronic COPD: Not on any regimen, currently not hypoxic, will initiate on ATC DuoNeb therapy, PRN albuterol, HOB, IS parameters. #9. Tobacco Abuse: Encouraged cessation, inpatient consultation per RT, NR if desired. #10. Severe protein calorie malnutrition: Patient with decreased oral intake, weight loss, reduced BMI, muscle and fat loss, likely all secondary to #1 component, nutrition consulted for recommendation. #11. EtOH Abuse: Patient notes routine consumption of 5-6 beers per day. Will maintain on CIWA protocol, MVI, thiamine and folic acid. Encourage sobriety. If necessary certainly could initiate phenobarbital or other agent pending symptoms. Magnesium low per ED, as noted will initiate IV treatment as well, phosphorus level requested. #12. DVT prophylaxis: Lovenox; however as noted above further evaluation ongoing and may need to hold chemoprophylaxis for possible upcoming biopsy.. #13. CODE status: Patient HCPOA and living will are not in place but he notes he would want his significant other Litzy to be his medical decision-maker if necessary. Discussed CODE status at length including difference between FULL code, DNR-CCA and DNR-CC status. Following discussions about the differences in these status, requested Full Code status. Advanced Care Planning Face to Face Time: 16 minutes. Charges/Coding Visit Charges Inpatient E&M: 62551 Init Hosp L3 Procedures Hospitalists Procedures: 30588 Advncd Care Plan 30 Min
[2025-03-17] VITALS (18 sets, daily range): BP systolic 98–106; BP diastolic 55–65; PULSE 85–111; RESP 14–23; TEMP 36.4; O2SAT 98–100
== END 2025-03-17 05:08 | disposition short-term general hospital (02) ==
PROVIDERS: Emergency Provider Surgery; PCP Family Medicine; Visit Provider Surgery
DX: C32.1 Malignant neoplasm of supraglottis (principal); C78.1 Secondary malignant neoplasm of mediastinum; C77.1 Secondary and unspecified malignant neoplasm of intrathoracic lymph nodes; C32.0 Malignant neoplasm of glottis; J44.9 Chronic obstructive pulmonary disease, unspecified; E86.0 Dehydration; R62.7 Adult failure to thrive; E78.5 Hyperlipidemia, unspecified; D64.9 Anemia, unspecified; E87.6 Hypokalemia; F17.210 Nicotine dependence, cigarettes, uncomplicated; I10 Essential (primary) hypertension; I25.10 Atherosclerotic heart disease of native coronary artery without angina pectoris; Z79.51 Long term (current) use of inhaled steroids; R91.8 Other nonspecific abnormal finding of lung field; E83.42 Hypomagnesemia; F10.10 Alcohol abuse, uncomplicated; Z95.5 Presence of coronary angioplasty implant and graft; E43 Unspecified severe protein-calorie malnutrition
CPT/HCPCS: 70491; 71275; 80048; 83735; 83880; 84484; 85025; 87631; 93005; 94640; 96360; 96361; 99285; Q9967; A4216